=== PATIENT | female | born 1945 | race Caucasian/White ===

== ENCOUNTER → 2018-05-15 | Outpatient (CLI) | payer MEDICARE ==
[~2018-05-15] MED LIST: AMIT25 PO; ASPI325; CLON.5; DIAZ5 PO; DOXE25 PO; HYDACE5 PO; IBUP600 PO; KLONOPIN; LEVSOD100; LEVSOD100 PO; LEVSOD75; NAPR550 PO; ZOLP10 PO
== END | disposition home or self-care (01) ==
LOC: LAB SHORT 08:30 → PLD 08:30
DX: L57.0 Actinic keratosis (principal)
CPT/HCPCS: 88305

== ENCOUNTER → 2019-01-29 | Outpatient (CLI) | payer MEDICARE ==
[2019-01-30 14:07] LABS: HPV 16 Negative (Negative); HPV 18 Negative (Negative); HPV OTHER HR TYPES Negative (Negative)
== END | disposition home or self-care (01) ==
LOC: LAB 13:01 → LAB SHORT 13:01
PROVIDERS: Nurse Practitioner Women's Health
DX: Z12.4 Encounter for screening for malignant neoplasm of cervix (principal)
CPT/HCPCS: 87624; G0123

== ENCOUNTER 2019-07-01 06:54 | Day surgery (SDC) | payer MEDICARE ==
[~2019-07-01] VITALS: Ht 162.6 cm; Wt 73.6 kg
[~2019-07-01 06:54] MED LIST changes: +EUTHYROX88 MCG PO; +METO25ER PO; +PRAM.125 PO; +QUET25 PO; +ZOLP5 PO
== END 2019-07-01 09:20 | disposition home or self-care (01) ==
LOC: ORSCSDS 06:54
PROVIDERS: Ophthalmology
PROC: 08RJ3JZ Replacement of Right Lens with Synthetic Substitute, Percutaneous Approach (ICD-10-PCS; principal; 2019-07-01 08:30)
DX: H25.11 Age-related nuclear cataract, right eye (principal); I10 Essential (primary) hypertension; F41.9 Anxiety disorder, unspecified; K21.9 Gastro-esophageal reflux disease without esophagitis; Z79.899 Other long term (current) drug therapy
CPT/HCPCS: J2001; J2250; J3010; J3301; J7120; V2632

== ENCOUNTER 2020-10-25 02:12 | Inpatient (IN) | payer MEDICARE ==
[~2020-10-25] VITALS: Ht 165.1 cm; Wt 71.5 kg
[2020-10-25 02:30] LABS: Calcium, Ionized (POC) 1.39 mmol/L (1.10-1.46); Chloride (POC) 102 mmol/L (98-108); Glucose (ISTAT POC) 134 mg/dL (70-99); Hemoglobin (POC) 12.6 g/dL (12.0-16.0); Potassium (POC) 4.1 mmol/L (3.5-5.5); Sodium (POC) 138 mmol/L (135-148); Total CO2 (POC) 29 mmol/L (21-32)
[2020-10-25 02:35] LABS: BASOPHILS ABSOLUTE AUTO 0.05 K/mm3 (0.00-0.23); BASOPHILS PERCENT AUTO 1 % (0-2); EOSINOPHILS ABSOLUTE AUTO 0.19 K/mm3 (0.00-0.68); EOSINOPHILS PERCENT AUTO 3 % (0-6); Hematocrit 39.7 % (33.0-51.0); Hemoglobin 12.4 g/dL (11.5-16.0); IMMATURE GRAN ABSOLUTE AUTO 0.02 K/mm3 (0.00-0.10); IMMATURE GRAN PERCENT AUTO 0 % (0-1); LYMPHOCYTES ABSOLUTE AUTO 2.75 K/mm3 (0.84-5.20); LYMPHOCYTES PERCENT AUTO 36 % (21-46); MONOCYTES PERCENT AUTO 12 % (4-13); Mean Corpuscular HGB 28.2 pg (26.0-34.0); Mean Corpuscular HGB Conc 31.2 g/dL (31.5-36.5); Mean Corpuscular Volume 90 fL (80-100); Mean Platelet Volume 10.7 fL (9.1-12.4); NEUTROPHILS ABSOLUTE AUTO 3.83 K/mm3 (1.96-9.15); NEUTROPHILS PERCENT AUTO 50 % (41-73); Platelet Count 312 K/mm3 (150-400); RDW Coefficient Variation 13.2 % (11.7-14.2); RDW Standard Deviation 43.4 fL (35.1-46.3); Red Blood Cell Count 4.39 M/mm3 (3.80-5.20); White Blood Cell Count 7.74 K/mm3 (4.00-11.30)
[2020-10-25 03:00] LABS: Anion Gap 9 mmol/L (6-16); Blood Urea Nitrogen 16 mg/dL (8-24); Bun/Creatinine Ratio 18.3 (12.0-20.0); CO2, Blood 27 mmol/L (21-32); Calcium, Blood 8.8 mg/dL (8.5-10.1); Chloride, Blood 107 mmol/L (98-108); Creatinine, Blood 0.87 mg/dL (0.40-1.00); Glomerular Filtration Rate >60 (60-); Glucose, Blood 133 mg/dL (70-99); Potassium, Blood 4.2 mmol/L (3.5-5.5); Sodium, Blood 143 mmol/L (136-145); Troponin I <0.015 ng/mL (0.000-0.040)
--- NOTE | 2020-10-25 05:16 | NUR ---
ASSUMED PT: PT TRANSFERRED TO ICU 14 VIA GURNEY WITH RN AND AGENT CONTRACT CLERK AT BEDSIDE. HEART MONITOR ATTACHED. PT C/O CHEST TIGHTNESS 5/10. C/O JAW PULLING SENSATION IF SOMEONE IS PULLING ON HER FACE. LS CLEAR T/O WITH BIOX 92% ON RA. 2L N/C PLACED. HEART SOUND S1 AND S2 AUSCULTATED WITH MONITOR SHOWING 3RD DEGREE HEART BLOCK WITH HR 29. PULSES STRONG T/O. RIJ CENTRAL LINE WITH DOPAMAINE STARTED AT 2MCG/KG/MIN. 20G IV R HAND S/L. 18G IV L AC S/L. ABD R/S WITH BT X 4. AT BEDSIDE.
[2020-10-25] MEDS ORDERED: ASPI81CH PO (05:24)
[2020-10-25 05:45] LABS: Influenza A, PCR Negative (NEGATIVE); Influenza B, PCR Negative (NEGATIVE); Resp Syncytial Virus, PCR Negative (NEGATIVE); SARS-Cov-2 (COVID-19) PCR, MMC Negative (NEGATIVE)
--- NOTE | 2020-10-25 06:10 | NUR ---
DR. GRIFFITHS AT BEDSIDE. EKG OBTAINED SHOWING SR WITH HR 76.
--- NOTE | 2020-10-25 07:13 | NUR ---
URINE SENT TO CLEAR ESBL AND RECTAL SWAB WELL.
[2020-10-25 07:32] LABS: International Normalized Ratio 0.97; Prothrombin Time Results 10.4 Sec (9.7-11.5)
--- NOTE | 2020-10-25 10:55 | NUR ---
AM NOTE.... ASSUMED CARE OF PT APROX 0700, PT IS A&Ox4 AND ON BEDREST FOR 3RD DEGREE HEART BLOCK, PT IS CURRENTLY IN NSR IN THE 60'S-70'S AND DENIES ANY CHEST PAIN/PRESSURE N/V OR SOB. THE DOPEAMINE WAS ON STANDBY AT THE START OF THIS SHIFT. ZOLL PADS IN PLACE W/ZOLL AT THE BEDSIDE. PT'S BP STABLE WELL. L/S CLEAR T/O ON RA. BT PRESENT AND HYPOACTIVE,ABD IS SOFT AND NONTENDER TO PALP. NO EDEMA IS NOTED ON ASSESSMENT. PT IS TO HAVE PACER PLACEMENT TODAY W/DR. LEES. PT HAS RIGHT IJ CENTRAL LINE THAT SHE IS C/O OF PAIN AT THE INSERTION SITE. NO REDNESS OR SWELLING NOTED AT THE SITE. CALL LIGHT IN REACH WILL CONTINUE TO MONITOR.
--- NOTE | 2020-10-25 14:30 | NUR ---
PT UPDATE... PT RETURNED FROM THE BRAKE REPAIRER BUS WITH A DUAL CHAMBER PACEMAKER, PT IS AWAKE AND ALERT, DENIES ANY PAIN AT THIS TIME EXCEPT FOR THE RIGHT SIDE OF HER NECK WHERE THE RIGHT IJ CENTRAL LINE IS AT. PT'S VS STABLE, PRESSURE DRESSING TO THE LEFT UPPER CHEST WALL IS C/D/I. PT'S AT THE BEDSIDE UPDATED ON THE PROCEDURE AND PLAN OF CARE. PT EDUCATED ON LEFT ARM RESTRICTIONS, SLING IN PLACE. WILL CONTINUE TO MONITOR.
--- NOTE | 2020-10-25 14:42 | NUR ---
ADMIT: 10/25/20 DISCHARGE: DX: Third degree heart block CC: LIVIER CALL: RESIDENCE: home CAREGIVER: Bahman Cross, Child, DX: Anxiety, hyperlipidemia, hypothyroidism, see list DME: none CCM: none HOME HEALTH: none SUMMARY: 10/25/20- per chart review with Dr. Walker, cardiology has been consulted and echo was ordered on pt. Pt is having a pacemaker placed today and will need to schedule a stress test as an outpatient. Est eta for d/c is tomorrow. -cesar
--- NOTE | 2020-10-25 17:14 | NUR ---
PT UPDATE.... PT WAS TRANSFERED TO PCU 9 AT APROX 1630, PT'S VS STABLE, RIGHT IJ CENTRAL LINE WAS D/C'd WNL, BEDSIDE REPORT GIVEN TO WENDY RICE. ALL OF PT'S BELONGINGS PACKED AND SENT WITH THE PT. THE IMPLANT CARDS WERE GIVEN TO THE PT'S TO TAKE HOME.
--- NOTE | 2020-10-25 17:25 | NUR ---
UPDATE ASSUMED CARE OF PT FROM OLIMPIA RICE. PT ALERT AND ORIENTED. VS STABLE. HR NSR. BP STABLE. PT DENIES ANY PAIN, BUT REPORTS INCISION SITE IS SLIGHTLY SORE. PRESSURE DRESSING IN PLACE C/D/I. NO SWELLING OR BLEEDING NOTED. PT ORIENTED TO ROOM AND UNIT. CALL LIGHT IN REACH. PT SITTING UP EATING DINNER AT THIS TIME. POST PACEMAKER INSTRUCTIONS SHEET PROVIDED TO PT ALONG WITH EDUCATION ABOUT ARM RESTRICTIONS. SLING IN PLACE. WILL CONTINUE TO MONITOR AND REPORT TO ONCOMING RN.
--- NOTE | 2020-10-26 05:25 | NUR ---
CATTLE MANAGER SUMMARY PT HAS REMAINED NSR 60-70'S ON TELE. SX SITE DOES NOT APPEAR RED OR SWOLLEN HOWEVER PT WAS OFFERED ICE FOR ACHE PAIN AT SX SITE BUT PT REFUSED. BP MILDLY ELEVATED DUE TO PAIN AT SX SITE BUT IMPROVED OMCE PAIN TX PER EMAR. PT HAS EWMAINED COMPLIANT WITH SLING AND PRESSURE DRESSING STILL IN PLACE. ORDER FOR ABX OBTAINED AND GIVEN AFTER IT WAS FOUND THEY HAD NOT BEEN ORDERED. PT SLEEPING W CALL LIGHT WITHIN REACH, WCTM.
--- NOTE | 2020-10-26 07:46 | NUR ---
ASSUMED CARE FROM JOSE RN PT WAS IN IMAGING DURING REPORT. SOON AFTER RETURNING FROM IMAGING PT WAS GIVEN A BED BATH WITH THE PROBATION WORKER'S. PT WAS ABLE TO PARTICIPATE AND PERFORM SOME OF THE BED BATH INDEPENDENTLY. PT WAS PLACED BACK ON TELE AND IS NOW RESTING IN BED AWAITING BREAKFAST. PT HAS ONE DOSE OF VANCO LATER THIS MORNING THEN WILL BE PREPPED FOR DISCHARGE
--- NOTE | 2020-10-26 12:17 | NUR ---
10/26/20- PER CHART REVIEW WITH DR. BEEBE, PT IS STABLE TO D/C HOME. MET WITH PT, DISCUSSED LIVIER LETTER. SHE HAS NO CONCERNS ABOUT GOING HOME. SHE ACKNOWLEDGED UNDERSTANDING ABOUT FOLLOW UP APPTS WITH CARDIOLOGY ON 11/02/20 AND THAT LIVIER DEPT WILL BE GIVING HER A CALL TO FOLLOW UP WITH [facility]. PT STATES THAT HER WILL COME GET HER AND THAT HE WILL BE THERE TO HELP WITH ANY CARE NEEDS. -JUAN
--- NOTE | 2020-10-26 12:48 | NUR ---
DISCHARGE TO HOME PT HAS BEEN DISCHARGED FOLLOWING PACEMAKER PLACEMENT. PT WAS WALKED OUT ACCOMPANIED BY OVERNIGHT HOUSEPERSON AT APPROXIMATELY 1242. VS STABLE, PT WAS GIVEN EDUCATION ON HOW TO CARE FOR THE OP SITE AND GIVEN INFORMATION REGARDING HER FOLLOW UP APPOINTMENTS FOR WOUND CHECK, PCP FOLLOW UP AT [place] AND PACEMAKER CHECK IN 4-6 WEEKS. PT WAS ALERT AND ORIENTED AND LEFT WITH ALL PERSON BELONGINGS.
== END 2020-10-26 12:42 | disposition home or self-care (01) | DRG 244 ==
LOC: ER 02:12 → ICUW 02:54 → PCU 16:35
PROVIDERS: Internal Medicine Cardiovascular Disease; Student in an Organized Health Care Education/Training Program; ADMIT Family Medicine
PROC: 02HV33Z Insertion of Infusion Device into Superior Vena Cava, Percutaneous Approach (ICD-10-PCS; principal; 2020-10-25)
PROC: 0JH606Z Insertion of Pacemaker, Dual Chamber into Chest Subcutaneous Tissue and Fascia, Open Approach (ICD-10-PCS; 2020-10-25)
PROC: 02H63JZ Insertion of Pacemaker Lead into Right Atrium, Percutaneous Approach (ICD-10-PCS; 2020-10-25)
PROC: 02HK3JZ Insertion of Pacemaker Lead into Right Ventricle, Percutaneous Approach (ICD-10-PCS; 2020-10-25)
DX: I44.2 Atrioventricular block, complete (principal); E03.9 Hypothyroidism, unspecified; G25.81 Restless legs syndrome; Z20.822 Contact with and (suspected) exposure to COVID-19; G47.00 Insomnia, unspecified
CPT/HCPCS: 0241U; 33208; 36556; 71045; 71046; 76937; 80047; 80048; 84484; 85014; 85025; 85610; 86850; 86900; 86901; 87081; 87086; 93005; 93010; 93306; 99152; 99153; 99285-25; A9270; C1785; C1894; C1898; J0461; J0690; J1265; J1644; J2250; J2270; J3010; J3370; J7030; J7040; J7050

== ENCOUNTER 2020-12-20 10:15 | Emergency (ER) | payer MEDICARE ==
[~2020-12-20] VITALS: Ht 162.6 cm; Wt 74.8 kg
[~2020-12-20 10:15] MED LIST changes: +ASPI81CH PO
[2020-12-20 10:45] LABS: BASOPHILS ABSOLUTE AUTO 0.06 K/mm3 (0.00-0.23); BASOPHILS PERCENT AUTO 1 % (0-2); EOSINOPHILS ABSOLUTE AUTO 0.17 K/mm3 (0.00-0.68); EOSINOPHILS PERCENT AUTO 3 % (0-6); Hematocrit 41.5 % (33.0-51.0); Hemoglobin 13.6 g/dL (11.5-16.0); IMMATURE GRAN ABSOLUTE AUTO 0.01 K/mm3 (0.00-0.10); IMMATURE GRAN PERCENT AUTO 0 % (0-1); LYMPHOCYTES ABSOLUTE AUTO 1.78 K/mm3 (0.84-5.20); LYMPHOCYTES PERCENT AUTO 31 % (21-46); MONOCYTES ABSOLUTE AUTO 0.81 K/mm3 (0.16-1.47); MONOCYTES PERCENT AUTO 14 % (4-13); Mean Corpuscular HGB 29.1 pg (26.0-34.0); Mean Corpuscular HGB Conc 32.8 g/dL (31.5-36.5); Mean Corpuscular Volume 89 fL (80-100); NEUTROPHILS ABSOLUTE AUTO 2.93 K/mm3 (1.96-9.15); NEUTROPHILS PERCENT AUTO 51 % (41-73); Platelet Count 303 K/mm3 (150-400); RDW Standard Deviation 45.1 fL (35.1-46.3); Red Blood Cell Count 4.67 M/mm3 (3.80-5.20); White Blood Cell Count 5.76 K/mm3 (4.00-11.30)
[2020-12-20 11:05] LABS: Source, Urine Clean Catch
[2020-12-20 11:07] LABS: Alanine Aminotransfer (ALT/SGP 32 U/L (12-78); Albumin, Blood 3.7 g/dL (3.4-5.0); Albumin/Globulin Ratio 1.1 (0.8-1.8); Alk Phos 142 U/L (50-136); Anion Gap 5 mmol/L (6-16); Aspartate Aminotrans (AST/SGOT 19 U/L (12-37); Bilirubin, Total 0.3 mg/dL (0.1-1.0); Blood Urea Nitrogen 15 mg/dL (8-24); Bun/Creatinine Ratio 25.5 (12.0-20.0); CO2, Blood 28 mmol/L (21-32); Calcium, Blood 9.2 mg/dL (8.5-10.1); Chloride, Blood 108 mmol/L (98-108); Creatinine, Blood 0.59 mg/dL (0.40-1.00); Globulin, Blood 3.4 g/dL (2.2-4.0); Glomerular Filtration Rate >60 (60-); Glucose, Blood 100 mg/dL (70-99); Potassium, Blood 3.7 mmol/L (3.5-5.5); Sodium, Blood 141 mmol/L (136-145); Total Protein, Blood 7.1 g/dL (6.4-8.2); Troponin I <0.015 ng/mL (0.000-0.040)
[2020-12-20 11:09] LABS: Appearance, Urine Clear (Clear); Bilirubin, Urine Neg (Neg); Blood, Urine 1+ (Neg); Color, Urine Yellow (P-Yellow); Glucose Qualitative, Urine Neg (Neg); Ketones, Urine Neg (Neg); Leukocyte Esterase, Urine 1+ (Neg); Nitrite, Urine Neg (Neg); Protein, Urine Neg (Neg); Urobilinogen, Urine NORM (Normal)
[2020-12-20 11:19] LABS: Free Thyroxine 1.18 ng/dL (0.70-1.60); Thyroid Stimulating Hormone 1.43 uIU/mL (0.360-4.800)
[2020-12-20 11:26] LABS: Bacteria Many /hpf
[2020-12-20 11:27] LABS: Red Blood Cells, Urine 0-2 /hpf (0-2); Squamous Epithelial Cells Few /hpf (Few); White Blood Cells, Urine 0-2 /hpf (0-5)
[2020-12-20 11:29] LABS: Influenza A, PCR NEGATIVE (NEGATIVE); Influenza B, PCR NEGATIVE (NEGATIVE); Resp Syncytial Virus, PCR NEGATIVE (NEGATIVE); SARS-Cov-2 (COVID-19) PCR, MMC NEGATIVE (NEGATIVE)
[2020-12-20] MEDS ORDERED: NITR100CA PO (12:23)
== END 2020-12-20 13:02 | disposition home or self-care (01) ==
LOC: ER 10:15
PROVIDERS: Emergency Medicine
DX: N39.0 Urinary tract infection, site not specified (principal); I10 Essential (primary) hypertension; E03.9 Hypothyroidism, unspecified; R06.02 Shortness of breath; Z79.899 Other long term (current) drug therapy; Z88.0 Allergy status to penicillin; Z88.2 Allergy status to sulfonamides; Z91.040 Latex allergy status
CPT/HCPCS: 0241U; 36415; 71045; 71260; 80053; 81001; 83880; 84439; 84443; 84484; 85025; 85379; 87086; 93005; 93010; 99285-25; Q9967

== ENCOUNTER → 2021-01-04 | Outpatient (CLI) | payer MEDICARE ==
[~2021-01-04] MED LIST changes: +NITR100CA PO
== END | disposition home or self-care (01) ==
LOC: LAB SHORT 11:21
DX: D48.5 Neoplasm of uncertain behavior of skin (principal)
CPT/HCPCS: 88305

== ENCOUNTER 2021-04-22 18:34 | Emergency (ER) | payer MEDICARE ==
[~2021-04-22] VITALS: Ht 165.1 cm; Wt 77.1 kg
[2021-04-22 19:32] LABS: BASOPHILS ABSOLUTE AUTO 0.04 K/mm3 (0.00-0.23); BASOPHILS PERCENT AUTO 1 % (0-2); EOSINOPHILS ABSOLUTE AUTO 0.14 K/mm3 (0.00-0.68); EOSINOPHILS PERCENT AUTO 2 % (0-6); Hematocrit 40.8 % (33.0-51.0); Hemoglobin 13.3 g/dL (11.5-16.0); IMMATURE GRAN ABSOLUTE AUTO 0.02 K/mm3 (0.00-0.10); IMMATURE GRAN PERCENT AUTO 0 % (0-1); LYMPHOCYTES PERCENT AUTO 26 % (21-46); MONOCYTES ABSOLUTE AUTO 0.75 K/mm3 (0.16-1.47); MONOCYTES PERCENT AUTO 9 % (4-13); Mean Corpuscular HGB 28.9 pg (26.0-34.0); Mean Corpuscular HGB Conc 32.6 g/dL (31.5-36.5); Mean Corpuscular Volume 89 fL (80-100); Mean Platelet Volume 10.1 fL (9.1-12.4); NEUTROPHILS ABSOLUTE AUTO 5.03 K/mm3 (1.96-9.15); NEUTROPHILS PERCENT AUTO 62 % (41-73); Platelet Count 315 K/mm3 (150-400); RDW Coefficient Variation 14.4 % (11.7-14.2); RDW Standard Deviation 46.4 fL (35.1-46.3); White Blood Cell Count 8.08 K/mm3 (4.00-11.30)
[2021-04-22 19:51] LABS: Alanine Aminotransfer (ALT/SGP 35 U/L (12-78); Albumin/Globulin Ratio 1.2 (0.8-1.8); Alk Phos 120 U/L (50-136); Anion Gap 4 mmol/L (6-16); Aspartate Aminotrans (AST/SGOT 29 U/L (12-37); Bilirubin, Total 0.3 mg/dL (0.1-1.0); Blood Urea Nitrogen 17 mg/dL (8-24); Bun/Creatinine Ratio 27.5 (12.0-20.0); CO2, Blood 27 mmol/L (21-32); Calcium, Blood 8.9 mg/dL (8.5-10.1); Chloride, Blood 106 mmol/L (98-108); Creatinine, Blood 0.62 mg/dL (0.40-1.00); Globulin, Blood 3.2 g/dL (2.2-4.0); Glomerular Filtration Rate >60 (60-); Glucose, Blood 94 mg/dL (70-99); Potassium, Blood 3.9 mmol/L (3.5-5.5); Sodium, Blood 137 mmol/L (136-145); Total Protein, Blood 7.2 g/dL (6.4-8.2)
== END 2021-04-22 23:35 | disposition home or self-care (01) ==
LOC: ER 18:34
PROVIDERS: Physician Assistant
DX: K80.20 Calculus of gallbladder without cholecystitis without obstruction (principal); E03.9 Hypothyroidism, unspecified; Z88.0 Allergy status to penicillin; Z88.8 Allergy status to other drugs, medicaments and biological substances; Z88.2 Allergy status to sulfonamides; Z91.040 Latex allergy status; Z79.899 Other long term (current) drug therapy
CPT/HCPCS: 36415; 76705; 80053; 83690; 85025; 96374; 99284-25; J1885

== ENCOUNTER 2021-05-16 09:27 | Day surgery (SDC) | payer MEDICARE ==
[~2021-05-16] VITALS: Ht 165.1 cm; Wt 77.2 kg
[2021-05-16] MEDS ORDERED: METOPROLOL SUCC25 MG PO (10:47)
[2021-05-16] MEDS ORDERED: PRAM.125 PO (10:48)
[2021-05-16] MEDS ORDERED: METO25ER PO (10:49)
--- NOTE | 2021-05-16 13:29 | NUR ---
05/16/21 1329 Fidelina Rice 02 DC'D AT 1325, PTS SATS REMAIN AT 92% ON RA. PT STATES THAT SHE FEELS VERY WEAK, NO C/O PAIN OR NAUSEA. WILL MOVE PT TO SDU AND CONTINUE TO MONITOR.
--- NOTE | 2021-05-16 13:51 | NUR ---
05/16/21 1351 Fidelina Rice PATIENT C/O FEELING WEAK. PATIENT WAS ABLE TO TRANSFER TO CHAIR WITH MINIMAL ASSISTANCE AND VERBAL ENCOURAGEMENT. NO C/O PAIN OR NAUSEA. VSS. WILL CONTINUE TO MONITOR.
== END 2021-05-16 15:09 | disposition home or self-care (01) ==
LOC: ORSCSDS 09:27 → ORD 11:15 → ORSCSDS 11:15
PROVIDERS: Surgery
PROC: 0FT44ZZ Resection of Gallbladder, Percutaneous Endoscopic Approach (ICD-10-PCS; principal; 2021-05-16 11:15)
PROC: BF031ZZ Plain Radiography of Gallbladder and Bile Ducts using Low Osmolar Contrast (ICD-10-PCS; principal; 2021-05-16 11:15)
DX: K80.10 Calculus of gallbladder with chronic cholecystitis without obstruction (principal); E78.5 Hyperlipidemia, unspecified; E03.9 Hypothyroidism, unspecified; I10 Essential (primary) hypertension; G25.81 Restless legs syndrome; Z79.82 Long term (current) use of aspirin; Z79.899 Other long term (current) drug therapy
CPT/HCPCS: 74300; 88304; A9270; C1729; J0690; J1100; J1885; J2250; J2405; J2704; J2710; J3010; J7120

== ENCOUNTER → 2021-06-26 | Outpatient (CLI) | payer MEDICARE ==
[~2021-06-26] MED LIST changes: +METOPROLOL SUCC25 MG PO
== END ==
LOC: LAB SHORT 15:19 → LAB 15:19
DX: D48.5 Neoplasm of uncertain behavior of skin (principal); Z88.0 Allergy status to penicillin; Z88.2 Allergy status to sulfonamides; Z88.5 Allergy status to narcotic agent; Z91.040 Latex allergy status
CPT/HCPCS: 88305

== ENCOUNTER 2021-10-03 12:10 | Day surgery (SDC) | payer MEDICARE ==
[~2021-10-03] VITALS: Ht 165.1 cm; Wt 79.0 kg
== END 2021-10-03 14:45 | disposition home or self-care (01) ==
LOC: ORSCSDS 12:10
PROVIDERS: Surgery
PROC: 0DJD8ZZ Inspection of Lower Intestinal Tract, Via Natural or Artificial Opening Endoscopic (ICD-10-PCS; principal; 2021-10-03 13:30)
PROC: 0DB58ZX Excision of Esophagus, Via Natural or Artificial Opening Endoscopic, Diagnostic (ICD-10-PCS; principal; 2021-10-03 13:30)
PROC: 0DB78ZX Excision of Stomach, Pylorus, Via Natural or Artificial Opening Endoscopic, Diagnostic (ICD-10-PCS; principal; 2021-10-03 13:30)
DX: Z12.11 Encounter for screening for malignant neoplasm of colon (principal); K21.9 Gastro-esophageal reflux disease without esophagitis; E03.9 Hypothyroidism, unspecified; Z95.0 Presence of cardiac pacemaker; Z79.899 Other long term (current) drug therapy
CPT/HCPCS: 43239; G0121; 87426; 88305; 88342; C9803; J2704; J7120

== ENCOUNTER → 2022-03-20 | Outpatient (CLI) | payer MEDICARE ==
[2022-03-20 14:23] LABS: BASOPHILS ABSOLUTE AUTO 0.02 K/mm3 (0.00-0.23); BASOPHILS PERCENT AUTO 0 % (0-2); EOSINOPHILS ABSOLUTE AUTO 0.08 K/mm3 (0.00-0.68); EOSINOPHILS PERCENT AUTO 2 % (0-6); Hematocrit 41.5 % (33.0-51.0); Hemoglobin 13.7 g/dL (11.5-16.0); IMMATURE GRAN ABSOLUTE AUTO 0.01 K/mm3 (0.00-0.10); IMMATURE GRAN PERCENT AUTO 0 % (0-1); LYMPHOCYTES ABSOLUTE AUTO 1.51 K/mm3 (0.84-5.20); LYMPHOCYTES PERCENT AUTO 31 % (21-46); MONOCYTES ABSOLUTE AUTO 0.44 K/mm3 (0.16-1.47); MONOCYTES PERCENT AUTO 9 % (4-13); Mean Corpuscular HGB 29.5 pg (26.0-34.0); Mean Corpuscular Volume 89 fL (80-100); Mean Platelet Volume 9.9 fL (9.1-12.4); NEUTROPHILS ABSOLUTE AUTO 2.87 K/mm3 (1.96-9.15); NEUTROPHILS PERCENT AUTO 58 % (41-73); Platelet Count 314 K/mm3 (150-400); RDW Coefficient Variation 13.8 % (11.7-14.2); Red Blood Cell Count 4.65 M/mm3 (3.80-5.20); White Blood Cell Count 4.93 K/mm3 (4.00-11.30)
[2022-03-20 14:32] LABS: Albumin, Blood 4.1 g/dL (3.4-5.0); Albumin/Globulin Ratio 1.2 (0.8-1.8); Bilirubin, Total 0.3 mg/dL (0.1-1.0); Bun/Creatinine Ratio 20.8 (12.0-20.0); Creatinine, Blood 0.72 mg/dL (0.40-1.00); Globulin, Blood 3.4 g/dL (2.2-4.0); Potassium, Blood 3.7 mmol/L (3.5-5.5); Total Protein, Blood 7.5 g/dL (6.4-8.2)
== END | disposition home or self-care (01) ==
LOC: LAB 14:18 → LAB SHORT 14:18
PROVIDERS: Chiropractor
DX: E86.0 Dehydration (principal); R11.0 Nausea
CPT/HCPCS: 80053; 85025

== ENCOUNTER → 2023-05-27 | Outpatient (CLI) | payer MEDICARE | END | disposition home or self-care (01) | LOC: LAB 14:25 → LAB SHORT 14:25 | DX: R30.0 Dysuria (principal) | CPT/HCPCS: 87086 ==

== ENCOUNTER → 2024-01-16 | Outpatient (CLI) | payer MEDICARE | LOC: LAB 10:00 → LAB SHORT 10:00 | DX: N39.0 Urinary tract infection, site not specified (principal) | CPT/HCPCS: 87077; 87086; 87186 ==

== ENCOUNTER 2025-01-15 15:14 | Observation (INO) | payer MEDICARE ==
[~2025-01-15] VITALS: Ht 165.1 cm; Wt 78.0 kg
[2025-01-15 16:15] LABS: BASOPHILS ABSOLUTE AUTO 0.04 K/mm3 (0.00-0.23); BASOPHILS PERCENT AUTO 0 % (0-2); EOSINOPHILS ABSOLUTE AUTO 0.01 K/mm3 (0.00-0.68); EOSINOPHILS PERCENT AUTO 0 % (0-6); Hematocrit 42.5 % (33.0-51.0); Hemoglobin 14.1 g/dL (11.5-16.0); IMMATURE GRAN ABSOLUTE AUTO 0.03 K/mm3 (0.00-0.10); IMMATURE GRAN PERCENT AUTO 0 % (0-1); LYMPHOCYTES ABSOLUTE AUTO 1.83 K/mm3 (0.84-5.20); LYMPHOCYTES PERCENT AUTO 18 % (21-46); MONOCYTES ABSOLUTE AUTO 0.71 K/mm3 (0.16-1.47); MONOCYTES PERCENT AUTO 7 % (4-13); Mean Corpuscular HGB 29.1 pg (26.0-34.0); Mean Corpuscular HGB Conc 33.2 g/dL (31.5-36.5); Mean Corpuscular Volume 88 fL (80-100); Mean Platelet Volume 9.9 fL (9.1-12.4); NEUTROPHILS ABSOLUTE AUTO 7.59 K/mm3 (1.96-9.15); NEUTROPHILS PERCENT AUTO 74 % (41-73); Platelet Count 333 K/mm3 (150-400); RDW Coefficient Variation 13.5 % (11.7-14.2); RDW Standard Deviation 43.5 fL (35.1-46.3); Red Blood Cell Count 4.84 M/mm3 (3.80-5.20); White Blood Cell Count 10.21 K/mm3 (4.00-11.30)
[2025-01-15 16:24] LABS: Albumin, Blood 4.2 g/dL (3.4-5.0); Albumin/Globulin Ratio 1.2 (0.8-1.8); Bilirubin, Total 0.4 mg/dL (0.1-1.0); Bun/Creatinine Ratio 25.9 (12.0-20.0); Calcium, Blood 9.1 mg/dL (8.5-10.1); Creatinine, Blood 0.5 mg/dL (0.40-1.00); Globulin, Blood 3.4 g/dL (2.2-4.0); Potassium, Blood 3.7 mmol/L (3.5-5.5); Total Protein, Blood 7.6 g/dL (6.4-8.2)
[2025-01-15] MEDS ORDERED: Zolpidem Tartrate 5 MG Tab PO PRN (18:40)
[2025-01-15] MEDS ORDERED: EUTHYROX100 MCG PO (18:41)
[2025-01-15] MEDS ORDERED: METO25ER PO (18:41)
[2025-01-15] MEDS ORDERED: MIRAPEX PO (18:43)
[2025-01-15] MEDS ORDERED: QUETIAPINE FUMA25 MG PO (18:44)
[2025-01-15] MEDS ORDERED: AMBIEN5 MG PO (18:45)
[2025-01-15 20:32] VITALS: BP 140/113
[2025-01-15] MEDS ORDERED: QUEtiapine Fumarate 25 MG Tab PO SCH (21:00)
[2025-01-15] MEDS ORDERED: Pramipexole DI-HCL 0.125 MG Tab PO SCH (21:00)
[2025-01-16 00:26] VITALS: BP 145/69
[2025-01-16] MEDS ORDERED: Acetaminophen 325 MG TABLET PO PRN (03:10)
[2025-01-16 03:38] VITALS: BP 146/62
[2025-01-16] MEDS ORDERED: Levothyroxine Sodium 0.1 MG Tab PO SCH (06:00)
[2025-01-16 06:14] LABS: BASOPHILS ABSOLUTE AUTO 0.05 K/mm3 (0.00-0.23); BASOPHILS PERCENT AUTO 1 % (0-2); EOSINOPHILS ABSOLUTE AUTO 0.12 K/mm3 (0.00-0.68); EOSINOPHILS PERCENT AUTO 2 % (0-6); Hematocrit 39.7 % (33.0-51.0); Hemoglobin 13.2 g/dL (11.5-16.0); IMMATURE GRAN ABSOLUTE AUTO 0.01 K/mm3 (0.00-0.10); IMMATURE GRAN PERCENT AUTO 0 % (0-1); LYMPHOCYTES ABSOLUTE AUTO 1.76 K/mm3 (0.84-5.20); LYMPHOCYTES PERCENT AUTO 27 % (21-46); MONOCYTES ABSOLUTE AUTO 0.76 K/mm3 (0.16-1.47); MONOCYTES PERCENT AUTO 11 % (4-13); Mean Corpuscular HGB Conc 33.2 g/dL (31.5-36.5); Mean Corpuscular Volume 87 fL (80-100); Mean Platelet Volume 10.5 fL (9.1-12.4); NEUTROPHILS ABSOLUTE AUTO 3.95 K/mm3 (1.96-9.15); NEUTROPHILS PERCENT AUTO 59 % (41-73); Platelet Count 318 K/mm3 (150-400); RDW Coefficient Variation 13.4 % (11.7-14.2); RDW Standard Deviation 42.9 fL (35.1-46.3); Red Blood Cell Count 4.55 M/mm3 (3.80-5.20); White Blood Cell Count 6.65 K/mm3 (4.00-11.30)
[2025-01-16 06:45] LABS: Albumin, Blood 3.6 g/dL (3.4-5.0); Albumin/Globulin Ratio 1.2 (0.8-1.8); Bilirubin, Total 0.5 mg/dL (0.1-1.0); Bun/Creatinine Ratio 20.1 (12.0-20.0); Calcium, Blood 8.8 mg/dL (8.5-10.1); Creatinine, Blood 0.5 mg/dL (0.40-1.00); Globulin, Blood 2.9 g/dL (2.2-4.0); Potassium, Blood 3.5 mmol/L (3.5-5.5); Thyroid Stimulating Hormone 2.21 uIU/mL (0.360-4.800); Total Protein, Blood 6.5 g/dL (6.4-8.2)
--- NOTE | 2025-01-16 06:45 | NUR ---
Shift Summary Pt admitted to this unit from ED for chest pain. Trops negative. She has been NPO except water since 0000 in anticipation of stress test today. She c/o 3/10 chest pain which she describes as sharp and extending through her chest to her back. She says the chest pain has been getting better. She did c/o of headache and rcvd PRN Tylenol. No c/o of SoB, nausea, dizzyness, sweating. She is AOx4, independent in the room, pleasant and cooperative.
[2025-01-16 07:42] VITALS: BP 135/79
[2025-01-16] MEDS ORDERED: Caffeine Citrated 60 MG/3 ML Vial ONE (08:49)
[2025-01-16] MEDS ORDERED: Regadenoson 0.4 MG/5 ML SYRINGE ONE (08:50)
[2025-01-16] MEDS ORDERED: Enoxaparin 40 MG/0.4 ML SYR SC SCH (09:00)
[2025-01-16] MEDS ORDERED: Aminophylline 250MG / 10ML 10 ML Vial ONE (09:41)
[2025-01-16 12:22] VITALS: BP 137/67
--- NOTE | 2025-01-16 15:39 | NUR ---
SHIFT/DISCHARGE SUMMARY: PATIENT A/OX4, PLEASANT AND COOPERATIVE c CARE. PATIENT DENIES CP/PRESSURE, SOB, N/V AND DIZZINESS. PATIENT REPORTS HEADACHE, MEDICATED c TYLENOL FOR HEADACHE c MOD EFFECT. PATIENT HAD HER STRESS TEST DONE TODAY. PATIENT PACEMAKER WAS REPRAGRAMMED TODAY BY MEDTRONIC ASSOCIATE juanpablo GARCIA AT BEDSIDE. PATIENT AND FAMILY SPOKE TO DR. GARCIA (WATER SYSTEM OPERATOR) ALL QUESTIONS WERE ANSWERED. PATIENT RECEIVED SCHEDULED MEDS PER EMAR. VITAL SIGNS REVIEWED. PIV WAS DC'D BY KANCHAN, REGISTERED NURSE STEP DOWN. PATIENT DISCHARGE HOME. DISCHARGE INSTURCTIONS PACKET GIVEN TO PATIENT. PATIENT EDUCATED ON ADMITTING DX'S OF CP, S/S, TX AND TO F/U c PCP. PATIENT VERBALIZED UNDERSTANDING AND NO FURTHER QUESTIONS. PATIENT HAS HAD NO NEW RX ORDERED. ALL PERSONAL BELONGINGS WERE SENT HOME c THE PATIENT. PATIENT LEFT THE ROOM AT 1536, TRANSPORTED VIA WHEELCHAIR BY KANCHAN TO PATIENT ENTRANCE.
== END 2025-01-16 15:43 | disposition home or self-care (01) ==
LOC: ER 15:14 → ERHOLD 15:15 → MEDS 20:33
PROVIDERS: Student in an Organized Health Care Education/Training Program; ADMIT Family Medicine
DX: T82.118A Breakdown (mechanical) of other cardiac electronic device, initial encounter (principal); R07.89 Other chest pain; G47.00 Insomnia, unspecified; F41.9 Anxiety disorder, unspecified; G25.81 Restless legs syndrome; Y71.8 Miscellaneous cardiovascular devices associated with adverse incidents, not elsewhere classified; R53.83 Other fatigue; I34.0 Nonrheumatic mitral (valve) insufficiency; I10 Essential (primary) hypertension; E78.5 Hyperlipidemia, unspecified; E03.9 Hypothyroidism, unspecified; Z88.0 Allergy status to penicillin; Z88.2 Allergy status to sulfonamides; Z88.8 Allergy status to other drugs, medicaments and biological substances; Z79.890 Hormone replacement therapy; Z79.899 Other long term (current) drug therapy
CPT/HCPCS: 36415; 71046; 78452; 80053; 83880; 84443; 84484; 85025; 85379; 93005; 93010; 93017; 96372; 99285-25; A9270; A9500; G0378; J0280; J0706; J1650; J2785

== ENCOUNTER 2025-04-09 06:53 | Day surgery (SDC) | payer MEDICARE ==
[~2025-04-09] VITALS: Ht 165.1 cm; Wt 80.3 kg
[~2025-04-09 06:53] MED LIST changes: +AMBIEN5 MG PO; +EUTHYROX100 MCG PO; +MIRAPEX PO; +QUETIAPINE FUMA25 MG PO
[2025-04-09 09:42] VITALS: BP 131/71
== END 2025-04-09 09:45 | disposition home or self-care (01) ==
LOC: ORSCSDS 06:53
PROVIDERS: Surgery
PROC: 0DB48ZX Excision of Esophagogastric Junction, Via Natural or Artificial Opening Endoscopic, Diagnostic (ICD-10-PCS; principal; 2025-04-09 08:30)
PROC: 0DB68ZX Excision of Stomach, Via Natural or Artificial Opening Endoscopic, Diagnostic (ICD-10-PCS; principal; 2025-04-09 08:30)
DX: K22.70 Barrett's esophagus without dysplasia (principal); F41.9 Anxiety disorder, unspecified; Z95.0 Presence of cardiac pacemaker; E03.9 Hypothyroidism, unspecified; E78.5 Hyperlipidemia, unspecified; Z79.899 Other long term (current) drug therapy
CPT/HCPCS: 88305; 88312; 88342; J2704; J7120